=== PATIENT | female | born 1965 | race Caucasian/White ===

== ENCOUNTER 2017-05-29 09:44 | Observation (INO) | payer BC ==
[~2017-05-29 09:44] MED LIST: Bacitracin IV* 50,000 UNITS INJ ONE; Buffered Lidocaine 0.9% SYRIN* 5 ML/SYR SYRINGE INTRADERM ONE; Dexamethasone IV* 4 MG/ML 1 ML (4 MG) IV SLOW PU ONE; Lidocaine 1% MPF wEPI 200,000* 30 ML SDV ONE; Sodium Citrate/Citric Acid* 15 ML UDC PO ONE; Thrombin 5,000 UNITS* 1 APPLIC KIT - topical use - TOPICAL ONE
[2017-05-29] MEDS ORDERED: Sodium Citrate/Citric Acid* 15 ML UDC ONE (09:58)
[2017-05-29] MEDS ORDERED: Dexamethasone IV* 4 MG/ML 1 ML (4 MG) ONE (09:58)
[2017-05-29] MEDS ORDERED: ceFAZolin 2 GM (*##) 2 GM/100 ML BAG USE CEFA2SOL IVPB ONE (09:59)
[2017-05-29] MEDS ORDERED: Propofol* 10 MG/ML 20 ML BTL IV PUSH ONE (10:15)
[2017-05-29] MEDS ORDERED: Ondansetron INJ* 2 MG/ML VIAL ONE ×2 (10:15→13:37)
[2017-05-29] MEDS ORDERED: Ketorolac INJ* 30 MG/ML 1 ML VIAL ONE (10:15)
[2017-05-29] MEDS ORDERED: Lidocaine 2% PF * 5 ML VIAL ONE (10:15)
[2017-05-29] MEDS ORDERED: Rocuronium* 10 MG/ML VIAL ONE (10:55)
[2017-05-29] MEDS ORDERED: Midazolam* 1 MG/ML 2 ML VIAL (2 MG) ONE ×2 (10:59→11:45)
[2017-05-29] MEDS ORDERED: fentaNYL* 50 MCG/ML 2 ML VIAL (100 MCG VIAL) ONE (10:59)
[2017-05-29] MEDS ORDERED: HYDROmorphone INJ* 1 MG/ML CARPUJECT SYRINGE ONE (11:47)
[2017-05-29] MEDS ORDERED: Naloxone* 0.4 MG/ML 1 ML VIAL IV PRN (11:57)
[2017-05-29] MEDS ORDERED: Ondansetron INJ* 2 MG/ML VIAL IV PRN ×2 (11:57→23:00)
[2017-05-29] MEDS ORDERED: PROCHLORPERAZINE INJ 5 MG/ML 2 ML VIAL IV PRN ×2 (11:57→17:39)
[2017-05-29] MEDS ORDERED: diPHENhydraMINE IV* 50 MG/ML 1 ml VIAL (BENADRYL) IV PRN (11:57)
[2017-05-29] MEDS ORDERED: oxyCODONE TAB* 5 MG TAB PO PRN (11:57)
[2017-05-29] MEDS ORDERED: HYDROmorphone INJ* 1 MG/ML CARPUJECT SYRINGE IV PRN (11:57)
[2017-05-29] MEDS ORDERED: fentaNYL* 50 MCG/ML 2 ML VIAL (100 MCG VIAL) IV PRN (11:57)
[2017-05-29] MEDS ORDERED: Scopolamine 1.5 mg* PATCH ONE (11:58)
[2017-05-29] MEDS ORDERED: Acetaminophen TAB* 325 MG PO PRN (12:43)
[2017-05-29] MEDS ORDERED: Magnesium Hydroxide LIQ* 30 ML UDC PO PRN (12:43)
--- NOTE | 2017-05-29 15:00 | RAD ---
HISTORY: Right lumbar discectomy COMPARISONS: MRI dated May 09, 2014 VIEWS: 1 , portable intraoperative view of the lumbar spine performed at 11:55 AM for localization during spinal surgery FINDINGS: A single lateral projection of the lumbar spine demonstrates a metallic probe opposite of L4 counting from L5 as the last lumbar type vertebral body. IMPRESSION: LIMITED PORTABLE VIEW OF THE SPINE FOR LOCALIZATION DURING SPINAL SURGERY.
[2017-05-29] MEDS: HYDROcodone/ACETAMIN 5-325 MG* 1 TAB PO PRN (15:05)
[2017-05-30 08:02] VITALS: BP 126/73
--- NOTE | 2017-05-30 08:04 | PN ---
Progress Note - Progress Note Date of Service: 05/30/17 SOAP: Subjective: [Patient seen and examined this morning with Dr. Galindo. S/p lumbar discectomy L4-5 on the right, POD#1. RLE pain improved, feeling well this morning. Nausea resolved. ] Objective: [ Vital Signs: Temp Pulse Resp BP Pulse Ox 98.1 F 77 16 126/73 98 05/30/17 07:29 05/30/17 07:29 05/30/17 07:29 05/30/17 07:29 05/30/17 07:29 General: Alert and laying comfortably in bed. Neuro: Strength 5/5 bilaterally. Sensation intact. Incision: Intact with louise. No swelling. Dressing changed. ] Assessment: [Satisfactory post-op course. ] Plan: [1. Discharge home today. 2. Discharge instructions discussed with the patient. ]
[2017-05-30] MEDS ORDERED: Hydrochlorothiazide TAB* 25 MG PO SCH (09:00)
[2017-05-30] MEDS: HYDROcodone/ACETAMIN 5-325 MG* 1 TAB PO PRN (09:10)
[2017-06-01] MEDS ORDERED: Scopolamine PATCH Remove* 1 NOTE MISC PATCH OFF ONE (11:58)
--- NOTE | 2017-06-06 03:25 | OP ---
DATE OF OPERATION: 05/29/17 - ROOM #[id number] DATE OF : 61 SURGEON: Jono Galindo MD [facility] COORDINATOR: LOLY Huerta ANESTHESIOLOGIST: Lorraine Harris MD ANESTHESIA: General. PRE-OP DIAGNOSIS: Herniated nucleus pulposus, L4-5, on the right. POST-OP DIAGNOSIS: Herniated nucleus pulposus, L4-5, on the right. OPERATIVE PROCEDURE: Partial hemilaminectomy, L4-5, on the right with excision of herniated nucleus pulposus, L4-5, on the right with microdissection. DESCRIPTION OF PROCEDURE: After satisfactory general anesthesia was obtained, the patient was placed on the operating table in the prone position with the chest supported on the Stepohn frame and the back slightly flexed. The lumbar region was then clipped, prepped, and draped in a sterile manner for lumbar laminectomy, and a skin incision outlined from L4 to L5. This incision was infiltrated with 1% Xylocaine with epinephrine after which it was turned down sharply through the level of the lumbar fascia. The fascia was divided along the spinous processes of L4 and L5 and the paraspinal musculature was stripped away from these posterior elements using the periosteal elevator and monopolar cautery. An intraoperative x-ray was obtained verifying proper interspace localization, after which a partial hemilaminectomy was carried out by removing the inferior aspect of the L4 lamina and medial aspect of the facet complex with a combination of the Midas Elliott drill and Kerrison rongeurs. The decompression was carried superiorly as preoperative imaging studies had suggested the presence of a superiorly extruded disk fragment. The operating microscope was brought into the field and the remainder of the procedure was done under microscopic visualization. Utilizing microdissection, the epidural venous structures were coagulated and divided. With additional superior exposure, the L4 nerve root was identified. Projecting beneath the L5 nerve root was noted to be multiple fragments of freely extruded disk material. These fragments were removed until the L4 nerve root was noted to be free in its course. The disk space itself was not entered as the disk felt firm. After assuring adequate hemostasis, the wound was thoroughly irrigated, after which a piece of Gelfoam was placed over the laminectomy defect. The fascia was then reapproximated with 0 Vicryl suture. The subcutaneous tissue was closed with 3- 0 Vicryl suture, and the skin closed with skin clips. The estimated blood loss was less than 50 cc and the final sponge, padding, and needle counts were correct. The patient was taken to the recovery room, extubated, and in stable condition. [id number]/[facility] #: [id number] MTDD
--- NOTE | 2017-06-06 22:44 | DS ---
DISCHARGE SUMMARY: DATE OF ADMISSION: 05/29/17 DATE OF DISCHARGE: 05/30/17 ATTENDING PHYSICIAN: Dr. Galindo.* (DICTATED BY LOLY CROWDER) DISCHARGE DIAGNOSES: 1. Herniated nucleus pulposus, L4-5 on the right. 2. Hypertension. SPECIAL PROCEDURES: Lumbar diskectomy, L4-5 on the right. HOSPITAL COURSE: This 52-year-old female was seen in office with right-sided lumbar radiculopathy for the previous 3 to 4 weeks consistent with MRI findings of herniated disk at L4-5 on the right with a superiorly displaced fragment. She was treated with conservative treatments including medication, which failed to improve her symptoms. She, therefore, wished to undergo surgical treatment. On the day of admission, she was taken to Surgery where under general anesthesia a lumbar diskectomy at L4-5 on the right operation was carried out. Postoperatively, she was feeling well and the right lower extremity pain was resolved. She is ambulating independently and she is eating, drinking, and voiding without difficulty. Pain is well controlled with oral pain medication. On first postoperative day, she was discharged home to the care of her family. DISCHARGE INSTRUCTIONS: Wound care and activity level were discussed with the patient and provided. She will be seen in office in approximately 10 days for followup and staple removal. No discharge medications prescribed. LOLY CROWDER [id number]/[facility] #: [id number] MTDD
== END 2017-05-30 10:00 | disposition left against medical advice (07) ==
LOC: OR 09:44 → SSU 14:43
PROVIDERS: ADMIT Neurological Surgery; ATTEND Neurological Surgery
PROC: 01NB0ZZ Release Lumbar Nerve, Open Approach (ICD-10-PCS; principal; 2017-05-29 11:30)
DX: M51.16 Intervertebral disc disorders with radiculopathy, lumbar region (principal); I10 Essential (primary) hypertension; Z79.899 Other long term (current) drug therapy
CPT/HCPCS: 72100; 96374; 96375; A9270-GY; G0378; J0780; J1100; J1170; J1885; J2001; J2250; J2405; J2704; J3010